=== PATIENT | female | born 1935 | race Caucasian/White ===

== ENCOUNTER 2016-11-11 19:20 | Emergency (ER) | payer MEDICARE, BC ==
[2016-11-11 20:16] VITALS: BP 121/79; PULSE 89; RESP 16; TEMP 97.5; O2SAT 98
== END 2016-11-11 20:27 | disposition home or self-care (01) | DRG 607 ==
LOC: ED 19:20
DX: L50.9 Urticaria, unspecified (principal)
CPT/HCPCS: 99282

== ENCOUNTER 2019-05-13 11:58 | Emergency (ER) | payer MEDICARE, BC ==
[2019-05-13 12:22] VITALS: BP 150/73; PULSE 73; RESP 20; TEMP 96.2; O2SAT 94
== END 2019-05-13 14:50 | disposition home or self-care (01) | DRG 605 ==
LOC: ED 11:58
DX: S01.01XA Laceration without foreign body of scalp, initial encounter (principal); W06.XXXA Fall from bed, initial encounter; S80.212A Abrasion, left knee, initial encounter; S80.02XA Contusion of left knee, initial encounter; M25.571 Pain in right ankle and joints of right foot
CPT/HCPCS: 73562; 73610; 99283; A6402